=== PATIENT | female | born 1990 | race American Indian/Alaskan Native ===

== ENCOUNTER 2017-06-10 15:13 | Emergency (ER) | payer MEDICAID ==
[2017-06-10] MEDS ORDERED: KEPPRA 1,000 MG/NS 0.75% 100ML 1,000 MG/100 ML BAG IV ONE (16:10)
[2017-06-10] MEDS ORDERED: TORADOL IV ONE (16:26)
[2017-06-10 16:55] LABS: Basophils % (Auto) 0.5 % (0.0-1.8); Eosinophils % (Auto) 0.3 % (0.0-4.3); Hematocrit 38.9 % (30.3-42.9); Hemoglobin 12.5 gm/dl (10.1-14.3); Mean Corpuscular HGB Conc 32 % (30-34); Mean Corpuscular Hemoglobin 30 pg (28-32); Mean Corpuscular Volume 93 fl (79-97); Platelet Count 243 K/mm3 (140-440); Red Blood Count 4.18 M/mm3 (3.65-5.03); Red Cell Distribution Width 14.3 % (13.2-15.2); White Blood Count 6.3 K/mm3 (4.5-11.0)
[2017-06-10 17:08] LABS: Anion Gap 18 mmol/L; BUN/Creatinine Ratio 14.28; Blood Urea Nitrogen 10 mg/dL (7-17); Calcium 8.7 mg/dL (8.4-10.2); Carbon Dioxide 21 mmol/L (22-30); Glucose 79 mg/dL (65-100); Potassium 3.9 mmol/L (3.6-5.0); Sodium 143 mmol/L (137-145)
--- NOTE | 2017-06-10 17:59 | Cat Scan Report ---
FINAL REPORT PROCEDURE: CT HEAD/BRAIN WO CON TECHNIQUE: Computerized tomography of the head was performed without contrast material. HISTORY: Seizure, head injury COMPARISON: No prior studies are available for comparison. FINDINGS: No CT evidence of intracranial mass, hemorrhage, acute territorial infarction, or hydrocephalus. Calvarium is intact. There is chronic appearing deformity of the left medial orbital wall, likely related to old trauma. IMPRESSION: No CT evidence of acute intracranial abnormality
[2017-06-10 18:51] VITALS: BP 103/62
--- NOTE | 2017-06-10 19:10 | Emergency Department Report ---
ED Seizure HPI - General Chief Complaint: Seizure Stated Complaint: FAINTED/LOW BLOOD PRESSURE Time Seen by Provider: 06/10/17 16:09 Source: patient Mode of arrival: Ambulatory Limitations: No Limitations - History of Present Illness Initial Comments: 27-year-old female with a past medical history of asthma and seizure disorder presents to the hospital complains of seizure. Patient was at [facility]. She had her typical preceding seizure symptoms then had a seizure. Patient fell and struck her right side of her head in the process and now complains of 8/10 right-sided head and right lateral neck pain. Pain is worse palpation and movement. Patient appears to be angry and belligerent and not forthcoming with information. She sees aggravated that I am asking her questions about her history of present illness and at one point in time insist that I speak to her [employer] doctor (Dr Mona Heath/[facility]) because they "know everything about my seizures" . Patient admits to being noncompliant with her Keppra 1 week. No complaints of any focal numbness or weakness. When questioned as to why she is so angry and upset. She states that if I know anything about seizures and I should know that being angry is a side effect of having seizures. - Related Data Home Medications Medication Instructions Recorded Confirmed Last Taken levETIRAcetam [Keppra TAB] 1,000 mg PO BID 06/10/17 06/10/17 2 Days Ago Previous Rx's Medication Instructions Recorded Last Taken Type ALBUTEROL NEB's [Proventil 0.083% 2.5 mg IH Q4H PRN #90 neb 11/07/13 Unknown Rx NEBS] levETIRAcetam [Keppra TAB] 500 mg PO BID #60 tablet 06/10/17 Unknown Rx Allergies Allergy/AdvReac Type Severity Reaction Status Date / Time grape Allergy Severe Shortness Verified 11/05/13 09:33 of Breath ED Review of Systems ROS: Stated complaint: FAINTED/LOW BLOOD PRESSURE Other details as noted in HPI Comment: All other systems reviewed and negative Other: Constitutional: No fevers chills Eyes: No eye pain visual changes ENT: No ear pain or throat pain Neck: Denies pain Respiratory: Denies cough wheezing shortness of breath Cardiovascular: Denies chest pain, palpitations, syncope GI: Denies abdominal pain, nausea, vomiting, diarrhea : Denies dysuria Musculoskeletal: Denies back pain, joint swelling Skin: Denies rash, lesions, erythema Neurologic: as per hpi Psychiatric: Denies suicidal ideation, hallucinations ED Past Medical Hx - Past Medical History Hx Hypertension: No Hx Congestive Heart Failure: No Hx Diabetes: No Hx Deep Vein Thrombosis: No Hx Renal Disease: No Hx Sickle Cell Disease: No Hx Seizures: Yes (last seizure 04/29/2014) Hx Asthma: Yes Hx COPD: No Hx HIV: No Additional medical history: ovarian cysts - Surgical History Past Surgical History?: No - Social History Smoking Status: Current Every Day Smoker Substance Use Type: Alcohol - Medications Home Medications: Home Medications Medication Instructions Recorded Confirmed Last Taken Type ALBUTEROL NEB's [Proventil 0.083% 2.5 mg IH Q4H PRN #90 neb 11/07/13 06/10/17 Unknown Rx NEBS] levETIRAcetam [Keppra TAB] 1,000 mg PO BID 06/10/17 06/10/17 2 Days Ago History levETIRAcetam [Keppra TAB] 500 mg PO BID #60 tablet 06/10/17 Unknown Rx ED Physical Exam - General Limitations: No Limitations - Other Other exam information: General: No limitations, patient is alert in no acute distress Head exam: Atraumatic, normocephalic Eyes exam: Normal appearance, pupils equal reactive to light, extraocular movements intact ENT: Moist mucous membrane, normal oropharynx Neck exam: Normal inspection, full range of motion, no meningismus, no midline tenderness, right trapezius muscle tenderness at the neck Respiratory exam: Clear to auscultation bilateral, no wheezes, rales, crackles Cardiovascular: Normal rate and rhythm, normal heart sounds Abdomen: Soft, nondistended, and nontender, with normal bowel sounds, no rebound, or guarding Extremity: Full range of motion normal inspection no deformity Back: Normal Inspection, full range of motion, no tenderness Neurologic: Alert, oriented x3, cranial nerves intact, no motor or sensory deficit Psychiatric: Belligerent, hesitant to answer questions Skin: Warm, dry, intact ED Course Vital Signs 06/10/17 06/10/17 06/10/17 15:23 16:10 18:50 Temperature 98.3 F 98.2 F 98.1 F Pulse Rate 70 70 72 Respiratory Rate Blood Pressure 103/63 Blood Pressure 102/67 103/62 [Left] O2 Sat by Pulse 100 99 99 Oximetry - Reevaluation(s) Reevaluation #1: 06/10/17 Patient treated with Toradol, carpal load and received CT scan. Prior to discharge patient reports feeling better it seems to be in better spirits ED Medical Decision Making - Lab Data Result diagrams: 06/10/17 16:40 06/10/17 16:40 Lab Results 06/10/17 06/10/17 06/10/17 Range/Units 16:40 16:40 16:40 WBC 6.3 (4.5-11.0) K/mm3 RBC 4.18 (3.65-5.03) M/mm3 Hgb 12.5 (10.1-14.3) gm/dl Hct 38.9 (30.3-42.9) % MCV 93 (79-97) fl MCH 30 (28-32) pg MCHC 32 (30-34) % RDW 14.3 (13.2-15.2) % Plt Count 243 (140-440) K/mm3 Lymph % (Auto) 31.0 (13.4-35.0) % Owsley % (Auto) 9.6 H (0.0-7.3) % Eos % (Auto) 0.3 (0.0-4.3) % Baso % (Auto) 0.5 (0.0-1.8) % Lymph # 1.9 (1.2-5.4) K/mm3 Owsley # 0.6 (0.0-0.8) K/mm3 Eos # 0.0 (0.0-0.4) K/mm3 Baso # 0.0 (0.0-0.1) K/mm3 Seg Neutrophils % 58.6 (40.0-70.0) % Seg Neutrophils # 3.7 (1.8-7.7) K/mm3 Sodium 143 (137-145) mmol/L Potassium 3.9 (3.6-5.0) mmol/L Chloride 108.0 H (98-107) mmol/L Carbon Dioxide 21 L (22-30) mmol/L Anion Gap 18 mmol/L BUN 10 (7-17) mg/dL Creatinine 0.7 (0.7-1.2) mg/dL Estimated GFR > 60 ml/min BUN/Creatinine Ratio 14.28 % Glucose 79 (65-100) mg/dL Calcium 8.7 (8.4-10.2) mg/dL Magnesium 2.10 (1.7-2.3) mg/dL HCG, Qual Negative (Negative) - Radiology Data Radiology results: report reviewed (CT head: naf) - Medical Decision Making Patient had a seizure likely secondary to medication noncompliance. Symptoms improved prior to discharge. We will discharge with one-month supply of her medication - Differential Diagnosis seizure, medication noncompliance, joint abnormality, ICH, contusion Critical Care Time: No Critical care attestation.: If time is entered above; I have spent that time in minutes in the direct care of this critically ill patient, excluding procedure time. ED Disposition Clinical Impression: Seizure disorder, Noncompliance with medication regimen Disposition: TO HOME OR SELFCARE Is pt being admited?: No Does the pt Need Aspirin: No Condition: Stable Instructions: Recurrent Seizures Adult (ED) Additional Instructions: Take the medication as prescribed. Follow-up with your neurologist. Return if symptoms worsen. Prescriptions: levETIRAcetam [Keppra TAB] 500 mg PO BID #60 tablet Referrals: PRIMARY CARE, [Primary Care Provider] - 3-5 Days Time of Disposition: 19:09
== END 2017-06-10 19:20 | disposition home or self-care (01) ==
LOC: ED 15:13
DX: G40.909 Epilepsy, unspecified, not intractable, without status epilepticus (principal); Z91.14 Patient's other noncompliance with medication regimen; F17.200 Nicotine dependence, unspecified, uncomplicated
CPT/HCPCS: 36415; 70450; 80048; 83735; 84703; 85025; 93005; 93010; 96365; 96375; 99284; J1885; J1953